=== PATIENT | female | born 1960 | race Caucasian/White ===

== ENCOUNTER 2016-02-29 14:39 | Emergency (ER) | payer OTHER ==
[2016-02-29 14:52] VITALS: RESP 16
--- NOTE | 2016-02-29 15:45 | EDPHY ---
H & P Time Seen by Provider: 02/29/16 14:55 HPI/ROS: CHIEF COMPLAINT: left little finger laceration HISTORY OF PRESENT ILLNESS: Patient is a 55-year-old female who cut her left pinky finger while cutting an onion. Her pain is mild to moderate. Bleeding is controlled. She has no numbness or tingling. No other injury. REVIEW OF SYSTEMS: Negative Past Medical/Surgical History: Noncontributory Smoking Status: Never smoked Physical Exam: General Appearance: Alert and no distress. Head: Pupils equal. Normal. Respiratory: No respiratory distress. Cardiac: regular rate and rhythm. Extremities: patient has a laceration over distal left pinky. The laceration went through the nail and split the nail into. There is injury to the nail bed. She is neurovascular intact distally. Skin: No rashes or lesions. Neuro: Alert. Normal mood and affect. Constitutional: Initial Vital Signs Temperature (C) 36.8 C 02/29/16 14:51 Heart Rate 87 02/29/16 14:51 Respiratory Rate 16 02/29/16 14:51 Blood Pressure 129/71 H 02/29/16 14:51 O2 Sat (%) 96 02/29/16 14:51 O2 Delivery Mode Room Air Allergies/Adverse Reactions: Sulfa (Sulfonamide Antibiotics) Allergy (Verified 02/29/16 14:51) Home Medications: Medication Instructions Recorded NK [No Known Home Meds] 02/29/16 Medical Decision Making Procedures: Procedure: Avulsion treatment. Verbal consent was obtained from the patient. The 1 cm avulsion on the left pinky finger was anesthetized using a digital block. The wound was irrigated, draped and explored to its base with a gloved finger. The nail bed was involved. It was a near complete avulsion. I do not feel it would take to suture the avulsion back in place. This was a small distal tip. They have a full skin was removed. The wound was dressed with Surgicel and nonstick dressing. ED Course/Re-evaluation: In the emergency department I discussed treatment options with the patient. The patient does have an avulsed tip of her finger. I do not feel this is repairable. I discussed x-ray to determine if there is bone involvement. Patient would prefer to avoid x-ray at this time. It does not appear that avulsion involve the bone. Patient will be treated on Keflex for 3 days. Patient was given follow-up with Orthopedics of her fingers not improving. Differential Diagnosis: Differential includes but is not limited to laceration, finger avulsion, foreign body, bony injury Departure - Departure Disposition: Home, Routine, Self-Care Clinical Impression: Avulsion, finger tip Qualifiers: Encounter type: initial encounter Qualifier Code: (S61.209A) Unspecified open wound of unspecified finger without damage to nail, initial encounter Condition: Good Instructions: Nail Avulsion (ED), Skin Avulsion (ED) Referrals: Ruma Mckeon MD [Primary Care Provider] - 5-7 days, if not improved Bubba Campbell MD [Medical Doctor] - 5-7 days, if not improved
[2016-02-29] MEDS ORDERED: TDAP ADULT 0.5 ML VIAL (BOOSTRIX) IM ONE (16:24)
[2016-02-29 16:42] VITALS: BP 111/60; PULSE 60; TEMP 97.9; O2SAT 93
== END 2016-02-29 16:42 | disposition home or self-care (01) ==
DX: S61.207A Unspecified open wound of left little finger without damage to nail, initial encounter (principal); Z23 Encounter for immunization; W45.8XXA Other foreign body or object entering through skin, initial encounter

== ENCOUNTER → 2017-05-23 | Outpatient (CLI) | payer BC | LOC: FIMAGING 11:47 | PROVIDERS: ATTEND Family Medicine | DX: M79.671 Pain in right foot (principal) ==